=== PATIENT | female | born 1980 | race Caucasian/White ===

== ENCOUNTER 2021-11-13 18:52 | Inpatient (IN) | payer MEDICARE, MEDICAID ==
[2021-11-13] MEDS ORDERED: MAG HYDROX/AL HYDROX/SIMETH 30 ML CUP PO PRN (21:37)
[2021-11-13] MEDS ORDERED: ACETAMINOPHEN TAB 325 MG TAB PO PRN (21:37)
[2021-11-13] MEDS ORDERED: MAGNESIUM HYDROXIDE 2,400 MG/10 ML CUP PO PRN (21:37)
[2021-11-13] MEDS ORDERED: LORazepam 1 MG TAB PO PRN (21:37)
[2021-11-13] MEDS ORDERED: HALOPERIDOL LACTATE 5 MG/ML 1 ML VIAL IM PRN (21:37)
[2021-11-13] MEDS ORDERED: LORazepam 2 MG/ML INJ IM PRN (21:39)
[2021-11-13] MEDS ORDERED: haloperidoL 5 MG TAB PO PRN (21:40)
--- NOTE | 2021-11-13 23:23 | P.CONS ---
History of Present Illness - Reason for Consult Consult date: 11/13/21 - History of Present Illness The patient is a 40-year-old female who was transferred from [facility] for psychiatric evaluation. The patient was admitted to the mental health in which she was seen and evaluated with the mental health unit KEN Tom. 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 She reports having an apartment one-bedroom in which she states, although as per EPS evaluation and reports, the patient is currently homeless. She also reports spending large amount of time in the sun and being dry all over and developing small rashes as a result of her itching. She denied any additional physical complaints. Reports smoking 5 cigarettes a day but denies any drug or alcohol use. Denies recent chest discomfort, shortness of breath, fever, chills, cough, nausea, vomiting, abdominal pain, diarrhea. Review of systems: Pertinent positives and negatives as discussed in HPI, a complete review of systems was performed and all other systems are negative. Physical examination: General: non toxic, no distress, appears older than stated age, overweight Derm: Small excoriations without collection or drainage throughout, no unusual ecchymoses, warm, dry Head: atraumatic, normocephalic, symmetric Eyes: EOMI, no lid lag, anicteric sclera ENT: Nose and ears atraumatic, no thrush, no pharyngeal erythema Neck: trachea midline, supple Mouth: no lip lesion, mucus membranes moist Cardiovascular: S1S2 reg, no murmur, no edema Lungs: CTA bilateral, no rhonchi, no rales , no accessory muscle use Abdominal: soft, nontender to palpation, no guarding Ext: no gross muscle atrophy, no contractures, Neuro: No gross focal neuro deficits noted Psych: Alert, oriented, guarded affect Assessment/plan Small excoriations, suspected due to excessive itching -Obtain urine toxicology screen -Patient advised to use emollients and avoid excessive sun exposure Psychosis -As per psychiatry Thank you for allowing us to participate in the care of this patient. We will follow peripherally. Do not hesitate to contact us with questions. Someone can be reached from the [facility] hospitalist group at all hours of the day at [phone]. Past Medical History History of Any Multi-Drug Resistant Organisms: None Reported Smoking Status: Current every day smoker - Past Family History Mother Family Medical History: Cancer Medications and Allergies Home Medications Medication Instructions Recorded Confirmed Type No Known Home Medications 11/13/21 11/13/21 History Allergies Allergy/AdvReac Type Severity Reaction Status Date / Time No Known Allergies Allergy Verified 11/13/21 21:36 Physical Exam Vitals: Vital Signs Temp Pulse Resp BP 11/13/21 22:15 97.4 F L 73 16 116/66 Intake and Output 11/13/21 11/13/21 11/14/21 14:59 22:59 06:59 Other: Weight 76.41 kg
--- NOTE | 2021-11-14 09:25 | P.HP ---
Psychiatric H&P - . H&P Date: 11/14/21 History & Physical: Allergies Allergy/AdvReac Type Severity Reaction Status Date / Time No Known Allergies Allergy Verified 11/13/21 21:36 Vital Signs Temp 97.4 F L 11/13/21 22:15 Pulse 73 11/13/21 22:15 Resp 16 11/13/21 22:15 BP 116/66 11/13/21 22:15 Pulse Ox FiO2 Intake & Output 11/13/21 11/14/21 11/14/21 18:59 06:59 18:59 Weight 76.41 kg 11/14/21 09:16 This is a case of a 40-year-old single female was admitted to the hospital due to psychosis and agitation. 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 She says that she caught the [place] killer who was stalking her. 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 She says she has put all the mental health workers in prison because they keep doing this to her. She doesn't need any medications because [facility] told her to take medicines and then go home and not take medicines and don't go back to mental health anymore. However she would like me to give her some medicine so she can get the hell out of here. She says she did not like Abisharony but Dg was fine. Social history: The patient is wildly an accurate historian. However she says that she was adopted but she has no idea why. She was taken from her biological parents when she was 4 and adopted age 6 but her biological parents are fine. She was 1 of 9 children in the home she was adopted into. She has no idea whether her adoptive parents are alive or not but says that she has no animosity toward them she just doesn't know where they live with her phone number and has no car to go look for them. 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 She races at all her answers and has a chip on her shoulder. When asked her what was the same between Snakes She Said "What Are You Talking about" and Later, " What Are You Getting out?" She was able to spell world backwards she couldn't subtract 7 from 93 slowly and then she was able to subtract that by using her fingers nodding her head. General information showing a new one of the [facility] and the last 3 presidents. Short-term memory is poor she could not remember any of the 3 objects I gave her on immediate recall by got the distinct impression she was not trying. She was concrete on that proverb aggressive screen and outside offense saying, "it looks nice over there." She denies hallucinations but is clearly filled with delusions. She would get very defensive and angry and I felt like as walking on the shelves the entire. Plan: Start her on Seroquel and she is willing to take but this point she does not want to be here so I'll fill out a petition she is a danger to herself because she is delusional and defensive and irritable.
[2021-11-14] MEDS: NICOTINE 14MG/24HR PATCH TRANSDERM SCH (09:27)
[2021-11-14] MEDS ORDERED: QUEtiapine 200 MG TAB PO SCH (21:00)
[2021-11-15] MEDS: NICOTINE 14MG/24HR PATCH TRANSDERM SCH (08:59)
--- NOTE | 2021-11-15 10:58 | P.PN ---
Progress Note - Text Progress Note Date: 11/15/21 Interval History: Patient was seen resting in bed and was directable and agreeable to speak with grant writer in her room. Currently, the patient is not reporting any suicidal or homicidal ideation, intention, and/or plan. She is denying any overt auditory or visual hallucinations. However, the patient remains adamant that she owns the motel that she was trying to break into that led up to her hospitalization after she was detained by police. 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 She is not in agreement for psychiatric medica tions aside from seroquel. She states she will take the invega injectible if she has no invega oral medication. She was informed oral medication is to assess tolerance however she states it is "illegal to have me try both." Mental Status Exam: General Appearance: Patient appears to be stated age is alert, directable, and cooperative. Missing teeth. Wearing glasses. Very colorful clothing. Behavior: Patient is calmly seated without any agitated behavior. Speech: Patient's speech is fluent and nonpressured. Loud in volume. Mood/Affect: Mood is "Doing alright!" Affect is expansive. Suicidality/Homicidality: Patient denies having any suicidal or homicidal ideation intent or plan. Perceptions: Patient denies any visual hallucinations and denies any auditory hallucinations Though content/process: Delusional thought content is endorsed. Memory and concentration: AOX3, grossly intact for the purposes of this session Judgment and insight: Poor Vital Signs Temp 97.4 F L 11/13/21 22:15 Pulse 73 11/13/21 22:15 Resp 16 11/13/21 22:15 BP 116/66 11/13/21 22:15 Pulse Ox FiO2 Intake & Output 11/14/21 11/15/21 11/15/21 18:59 06:59 18:59 Weight 75.9 kg Assessment Schizophrenia vs Delusional Disorder Tobacco Use Disorder Plan: -Patient continues to meet criteria for inpatient psychiatric admission for symptom stabilization and safety. Patient has been petitioned and certified. -Medications: Increase Seroquel to 250 mg at bedtime for psychosis. -When necessary Ativan and Haldol for agitation/aggression. -NRT - nicotine patch -SW on board for discharge planning. Encouraged the patient to participate in milieu.
[2021-11-15] MEDS: QUEtiapine 200 MG TAB PO SCH (21:03)
[2021-11-15] MEDS: QUEtiapine 50 MG TAB PO SCH (21:03)
[2021-11-16] MEDS: NICOTINE 14MG/24HR PATCH TRANSDERM SCH (08:22)
--- NOTE | 2021-11-16 13:23 | P.PN ---
Progress Note - Text Progress Note Date: 11/16/21 Interval History: Patient was seen resting in bed and was directable and agreeable to speak with typewriter assembly and parts inspector in her room. The patient is currently denying any suicidal or homicidal ideation, intention, and/or plan. She is not reporting any auditory or visual hallucinations. She is denying any paranoia or other delusions. The patient has been adherent with her medication is not endorsing any significant side effects at this time. The patient denies being open with any outpatient psychiatric services despite her reporting that she has been on medications in the past. She states that she now has a place to stay and identifies the "[facility]" as her new home. She was informed she would not be discharged yet as she has been petitioned and certified. Mental Status Exam: General Appearance: Patient appears to be stated age is alert, directable, and cooperative. Missing teeth. Wearing glasses. Behavior: Patient is calmly seated without any agitated behavior. Poor eye contact today. Speech: Patient's speech is fluent and nonpressured. Loud in volume. Mood/Affect: Mood is "okay!" Affect is less expansive. Appears to be euthymic but intense. Suicidality/Homicidality: Patient denies having any suicidal or homicidal ideation intent or plan. Perceptions: Patient denies any visual hallucinations and denies any auditory hallucinations Though content/process: No overt delusional thought content is endorsed. Memory and concentration: AOX3, grossly intact for the purposes of this session Judgment and insight: Poor Vital Signs Temp 97.1 F L 11/16/21 07:09 Pulse 91 11/16/21 07:09 Resp 16 11/13/21 22:15 BP 106/63 11/16/21 07:09 Pulse Ox FiO2 Assessment Schizophrenia vs Delusional Disorder Tobacco Use Disorder Plan: -Patient continues to meet criteria for inpatient psychiatric admission for symptom stabilization and safety. Patient has been petitioned and certified. -Medications: Continue Seroquel 250 mg at bedtime for psychosis. -When necessary Ativan and Haldol for agitation/aggression. -NRT - nicotine patch -SW on board for discharge planning. Encouraged the patient to participate in milieu.
[2021-11-16] MEDS: QUEtiapine 50 MG TAB PO SCH (20:40)
[2021-11-16] MEDS: QUEtiapine 200 MG TAB PO SCH (20:41)
[2021-11-17] MEDS: NICOTINE 14MG/24HR PATCH TRANSDERM SCH (08:29)
--- NOTE | 2021-11-17 13:57 | P.PN ---
Progress Note - Text Progress Note Date: 11/17/21 Interval History: Patient was seen wandering the hallways and was directable and agreeable to speak with signwriter in the office. Currently, the patient is not reporting any suicidal or homicidal ideation, intention, and/or plan. She is not reporting any auditory or visual hallucinations. She denies any overt paranoia or other delusions. The patient has been adherent with her medications and is not endorsing any significant side effects. The patient has been petitioned and certified and we are awaiting [facility] to have an restaurant assistant manager over. She does not report any issues regarding her sleep or her appetite. Mental Status Exam: General Appearance: Patient appears to be stated age is alert, directable, and cooperative. Missing teeth. Wearing glasses. Behavior: Patient is calmly seated without any agitated behavior. Good eye contact today. Speech: Patient's speech is fluent and nonpressured. Loud in volume. Mood/Affect: Mood is "why am I still here?" Affect appears to be euthymic albeit a little expansive. Suicidality/Homicidality: Patient denies having any suicidal or homicidal ideation intent or plan. Perceptions: Patient denies any visual hallucinations and denies any auditory hallucinations Though content/process: No overt delusional thought content is endorsed. Memory and concentration: AOX3, grossly intact for the purposes of this session Judgment and insight: Poor Vital Signs Temp 97.1 F L 11/16/21 07:09 Pulse 91 11/16/21 07:09 Resp 16 11/13/21 22:15 BP 106/63 11/16/21 07:09 Pulse Ox FiO2 Assessment Schizophrenia vs Delusional Disorder Tobacco Use Disorder Plan: -Patient continues to meet criteria for inpatient psychiatric admission for symptom stabilization and safety. Patient has been petitioned and certified. Awaiting possible deferral. -Medications: Continue Seroquel 250 mg at bedtime for psychosis. -When necessary Ativan and Haldol for agitation/aggression. -NRT - nicotine patch -SW on board for discharge planning. Encouraged the patient to participate in milieu.
[2021-11-17] MEDS: QUEtiapine 200 MG TAB PO SCH (20:00)
[2021-11-17] MEDS: QUEtiapine 50 MG TAB PO SCH (20:00)
[2021-11-18 06:59] VITALS: BP 98/74; PULSE 107; RESP 18; TEMP 97.6
[2021-11-18] MEDS: NICOTINE 14MG/24HR PATCH TRANSDERM SCH (09:58)
--- NOTE | 2021-11-18 11:11 | P.DS ---
Providers Date of admission: 11/13/21 20:20 Expected date of discharge: 11/18/21 Attending physician: Robert Puckett MD Consults: 11/13/21 21:37 Consult Physician Routine Consulting Provider: Andrew Campos Consult Reason/Comments: medical management Do you want consulting provider notified?: Already Contacted Primary care physician: Stated None - Discharge Diagnosis(es) (1) Schizophrenia Current Visit: Yes Status: Acute Priority: High (2) Tobacco use disorder Current Visit: Yes Status: Chronic Priority: Medium Hospital Course: Admission HPI: Initial psychiatric evaluation was completed by Dr. Freeman on 11/14/2021 who wrote: "This is a case of a 40-year-old single female was admitted to the hospital due to psychosis and agitation. 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 She says that she caught the [place] killer who was stalking her. 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 She says she has put all the mental health workers in senior living because they keep doing this to her. She doesn't need any medications because [facility] told her to take medicines and then go home and not take medicines and don't go back to mental health anymore. However she would like me to give her some medicine so she can get the hell out of here. She says she did not like Abilify but Seroquel was fine." Hospital course: Upon admission to the unit patient was initially eating his overtly psychotic, paranoid, and delusional. Patient initially displayed very poor insight and irritable and elevated affect. She was subsequently certified. The patient was agreeable however to starting Seroquel. As the patient continues to take the Seroquel, she was also agreeable to its titration. As a hospitalization continued, the patient is but a significant improvement in regards to her target symptoms of psychosis. She became much more calm and cooperative for this psychiatric interview although remain primarily isolative to herself in her room. She did however become less forthcoming with any psychotic symptoms and was less concerned about solving murder mysteries and breaking into a motel. As per discussion with staff, we received collateral information that the patient's delusional beliefs about the motel in [place] have been chronic in nature. The patient deferred mental health court on 11/17/2021. On the day of discharge , the patient is not reporting any suicidal or homicidal ideation, intention, and/or plan. She reports his desire to live for herself. She denies any auditory or visual hallucinations. She is not fourth coming with any overt delusional thoughts. She denies any paranoia or other delusions see this provider today. She has been adherent with her medication is not reporting any significant side effects. The patient was reminded that she did defer mental health court and that she is required to take her medication follow-up with her outpatient appointments for mental health. The patient expresses understanding. The patient was also counseled at length on importance of abstaining from psychoactive substances such as alcohol, marijuana, and even tobacco. Prior to discharge, a meeting will be arranged by nursing home social worker with her behavioral team in [facility] to answer questions and ensure safety. Mental status exam: General Appearance: Patient appears to be stated age is alert, pleasant, and cooperative. Patient is in no acute distress and has fair hygiene and grooming Behavior: Patient is calmly seated without any agitated behavior. Speech: Patient's speech is fluent and nonpressured. Mood/Affect: Patient reports their mood is "been okay", affect is congruent and euthymic. Suicidality/Homicidality: Patient denies any suicidal or homicidal ideation, intention, and/or plan. Perceptions: Patient denies any auditory or visual hallucinations. Though content/process: There is no evidence of any delusional thought content and thought process is linear and goal-directed. The patient is future and goal oriented. Memory and concentration: AOX3, grossly intact for the purposes of this session. Can spell "WORLD" backwards correctly. Judgment and insight: Improved with guarded prognosis Impression: Schizophrenia Tobacco use disorder Plan: -Continue with discharge today as patient has improved and stabilized psychiatrically and is not currently an imminent threat to herself and/or others. She will remain at chronically elevated risk due to the chronicity and severity of her mental illness. -Continue medications: Seroquel 250 mg by mouth at bedtime for mood stabilization/psychosis Habitrol patches for nicotine cessation -Patient was counseled on the need for medication compliance and appropriate follow-up at mental health and also primary care for medical issues. Patient verbalized understanding and agreed. -Social work to arrange for and conduct family meeting to ensure safety upon discharge and answer any questions/concerns. Social work also to arrange for patients follow up appointments with [facility] for psychiatric care along with follow up with primary care provider. -Patient counseled on abstaining from recreational drugs and marijuana and alcohol. Was informed/educated on the adverse effects on their physical and mental health. Patient verbally agreed and understood. -Patient was instructed to return to the hospital or seek immediate medical care if their psychiatric or medical symptoms do worsen or reoccur. -Psychoeducation and supportive therapy provided to patient. Risks and benefits of pharmacological treatment versus the risks and benefits of nontreatment weight and discussed. Informed consent discussion held. Common side effects of psychotropics discussed such as, but not limited to headache, GI disturbance, sexual dysfunction, movement disorders, sedation, and orthostatic hypotension. Life threatening and blackbox warnings of prescribed medications also discussed. Potential risks of operating a vehicle or heavy machinery discussed with patient at length. Advised on importance of compliance and a reliable and responsible manner. Patient advised to review FDA consumer labeling of all medications prior to taking. Patient verbalized understanding of potential risks, and agrees with current treatment plan. Patient advised to medically contact physician/emergency personnel if any acute changes in condition occur. Vital Signs Temp 97.6 F 11/18/21 06:58 Pulse 107 H 11/18/21 06:58 Resp 18 11/18/21 06:58 BP 98/74 11/18/21 06:58 Pulse Ox 98 11/18/21 06:58 FiO2 Allergies Allergy/AdvReac Type Severity Reaction Status Date / Time No Known Allergies Allergy Verified 11/13/21 21:36 Patient Condition at Discharge: Stable Plan - Discharge Summary New Discharge Prescriptions: New Nicotine 14Mg/24Hr Patch [Habitrol] 1 patch TRANSDERM DAILY 30 Days patch QUEtiapine [SEROquel] 50 mg PO HS 30 Days tab QUEtiapine [SEROquel] 200 mg PO HS 30 Days tab Discharge Medication List Nicotine 14Mg/24Hr Patch [Habitrol] 1 patch TRANSDERM DAILY 30 Days patch 11/18/21 [Rx] QUEtiapine [SEROquel] 50 mg PO HS 30 Days tab 11/18/21 [Rx] QUEtiapine [SEROquel] 200 mg PO HS 30 Days tab 11/18/21 [Rx] Follow up Appointment(s)/Referral(s): [facility], [facility] [Other] - 1 Week Activity/Diet/Wound Care/Special Instructions: Avoid the use of street drugs and alcohol. Take all prescriptions as prescribed. When you are in need of refills on your medications, please contact your medical provider and/or outpatient psychiatrist to have this done. Please go to scheduled outpatient appointment for aftercare treatment. If symptoms return or become worse, call the crisis line at and/or go to the nearest emergency room for evaluation. Discharge Disposition: HOME SELF-CARE
== END 2021-11-18 13:55 | disposition home or self-care (01) | DRG 880 ==
LOC: 3MHU 20:20
PROVIDERS: ADMIT Psychiatry & Neurology Psychiatry; ATTEND Psychiatry & Neurology Psychiatry
DX: F99 Mental disorder, not otherwise specified (principal); F20.9 Schizophrenia, unspecified; F17.210 Nicotine dependence, cigarettes, uncomplicated; Z59.00 Homelessness unspecified; Z79.899 Other long term (current) drug therapy; R45.1 Restlessness and agitation; F42.4 Excoriation (skin-picking) disorder; Z28.310 Unvaccinated for COVID-19; Z71.6 Tobacco abuse counseling; Z71.89 Other specified counseling

== ENCOUNTER 2022-02-18 05:57 | Inpatient (IN) | payer MEDICARE, MEDICAID ==
[2022-02-18] MEDS ORDERED: HALOPERIDOL LACTATE 5 MG/ML 1 ML VIAL IM PRN (06:21)
[2022-02-18] MEDS ORDERED: ACETAMINOPHEN TAB 325 MG TAB PO PRN (06:21)
[2022-02-18] MEDS ORDERED: LORazepam 1 MG TAB PO PRN (06:21)
[2022-02-18] MEDS ORDERED: MAG HYDROX/AL HYDROX/SIMETH 30 ML CUP PO PRN (06:21)
[2022-02-18] MEDS ORDERED: MAGNESIUM HYDROXIDE 2,400 MG/10 ML CUP PO PRN (06:21)
[2022-02-18] MEDS ORDERED: LORazepam 1 MG/0.5 ML VIAL IM PRN (06:24)
[2022-02-18] MEDS ORDERED: haloperidoL 5 MG TAB PO PRN (06:25)
--- NOTE | 2022-02-18 13:21 | P.PN ---
Progress Note - Text Progress Note Date: 02/18/22 Went to see patient for the consultation and she refused evaluation, she wants to see the psychiatrist.
[2022-02-18] MEDS: NICOTINE 14MG/24HR PATCH TRANSDERM SCH (14:21)
[2022-02-19] MEDS: NICOTINE 14MG/24HR PATCH TRANSDERM SCH (10:13)
--- NOTE | 2022-02-19 13:45 | P.HP ---
Psychiatric H&P - . H&P Date: 02/19/22 History & Physical: IDENTIFYING DATA: Patient is a 41 year old single female with history of schizophrenia who was admitted to the hospital due to psychosis and erratic behaviors. 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 She is claiming she owns the [employer] and was trying to evict people out of there. Patient is delusional and showing erratic behavior. Patient denies having a mental health history. Police state that she was trying to evict people from the [employer]." Clinical Certificate: "Schizophrenia with acute psychosis. Patient with grandiose delusions." Per [facility], pt is not taking any meds, denies suicidal and homicidal thoughts, states she works for the [employer], is a poor historian, not able to appropriately answer questions and treated for scabies while in [facility] ED." She was given Haldol 5 mg IM x 1 and Ativan 2 mg IM x 1 for agitation prior to transfer to the unit. Per nursing notes, since arrival to the unit, patient has been mostly uncooperative with treatment, has been hostile towards nursing staff, called the nurse a "dumbass" numerous times. She is disheveled, easily frustrated, has not attended most groups. She was recently hospitalized on our mental health unit from 11/13/21 to 11/18/21 on involuntary basis for psychosis and agitation, and was discharged on Seroquel 250 mg QHS for mood stabilization/psychosis. Patient deferred mental health court on 11/17/2021. On my assessment today, patient was found isolating to her room looking out the window with the lights off. She is hostile and uncooperative on assessment. She begins to ramble delusional thought content laced with profanity and terminates assessment after 1-2 minutes. She is claims she was told by a numerical control tool programmer that she owns the motel. 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 She claims she does not have a mental illness and does not need psychotropic medications. She tells this writer technical publications to get out of her room and she will wait to see the student activities director. She calls this writer technical publications a "betsy navarro" multiple times. Assessment was terminated to avoid further escalating patient and to maintain safety. Most of history below taken from past records. She has a history of marijuana and tobacco use. PAST PSYCHIATRIC HISTORY: Previous diagnosis: Schizophrenia Prior psychiatric medications: Dg Noland Previous psychiatric hospitalizations: 7 hospitalizations, last one 11/2021 at [facility] Psychiatric outpatient follow-up: not known at this time due to lack of cooperation History of suicide attempts: not known at this time due to lack of cooperation PMH: Smoker Other medical history not known at this time due to lack of cooperation ALLERGIES: as per EMR CHEMICAL DEPENDENCY HISTORY: as per HPI FAMILY PSYCHIATRIC/SUBSTANCE USE HISTORY: not known at this time due to lack of cooperation SOCIAL HISTORY: Per chart, she previously reported having been adopted. She completed high school She is on social security MENTAL STATUS EXAM: General Appearance: Patient appears to be stated age, disheveled, dressed in sweats Behavior: Patient is standing looking out the window, then sits on her bed and begins to yell profanity at this writer technical publications Speech: Patient's speech is loud, rapid but not pressured. Mood/Affect: Mood is irritable, affect is congruent and constricted. Suicidality/Homicidality: Not able to fully assess at this time due to lack of cooperation Perceptions: Concern for attending to internal stimuli. 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 Not able to fully assess at this time due to lack of cooperation Judgment and insight: Very poor STRENGTHS/WEAKNESSES: Strength is that patient is resilient. Weakness is that patient has poor judgment and is impulsive. INTELLECT: Estimated as average IMPRESSIONS: Schizophrenia Tobacco use disorder Noncompliance with treatment PLAN: -Patient is admitted under involuntary status to MHU for stabilization of psychiatric symptoms and safety. Patient has not signed adult voluntary form or medication consent. A second certification was completed and along with petition will be filed for court. -Medications: Will start patient on Invega 3 mg QHS for psychosis/mood stabilization which she will likely refuse, and she will require a court order for medication compliance. Admission labs have been ordered but not yet completed due to lack of cooperation. -Ativan and Haldol PRN for agitation/aggression. -Patient was not cooperative with discussion regarding medications and side effects. -Internal Medicine consult to perform medical evaluation and physical. -NRT - nicotine patch -SW on board for discharge planning. Encourage patient to participate in groups to work on coping skills. Will await court date. Allergies Allergy/AdvReac Type Severity Reaction Status Date / Time No Known Allergies Allergy Verified 02/18/22 06:33 Vital Signs Temp 98.5 F 02/18/22 12:41 Pulse 104 H 02/18/22 12:41 Resp 20 02/18/22 12:41 BP 125/76 02/18/22 12:41 Pulse Ox FiO2 02/19/22 12:50 02/19/22 13:30
[2022-02-19] MEDS: PALIPERIDONE 3 MG TAB.ER.24 PO SCH (21:19)
--- NOTE | 2022-02-20 00:20 | P.PN ---
Progress Note - Text Progress Note Date: 02/19/22 Attempted to see the patient at 1999 on 02/19 in the mental health unit. Informed by the mental health unit RN that the patient wasn't appropriate for evaluation.
[2022-02-20] MEDS: NICOTINE 14MG/24HR PATCH TRANSDERM SCH (11:05)
[2022-02-20] MEDS: PALIPERIDONE 3 MG TAB.ER.24 PO SCH (20:09)
--- NOTE | 2022-02-20 23:18 | P.PN ---
Progress Note - Text Progress Note Date: 02/20/22 Interval history: Patient was seen eating her snack and was dismissive, not cooperative with assessment. She was observed attending to internal stimuli, appeared to be talking to herself. She has been withdrawn, isolating to her room except for meals. She has not been attending groups and has been noncompliant with meds and labs. She remains disheveled, irritable, with poor insight and poor judgment. Mental status exam: General Appearance: Patient appears to be older than stated age, disheveled. Behavior: Withdrawn, isolates to room except for meals, ignores attempts to engage in assessment, talks to self. Speech: Patient's speech is fluent and nonpressured. Mood/Affect: Mood is irritable, affect is congruent and constricted. Suicidality/Homicidality: Not able to fully assess due to lack of cooperation. Perceptions: Appears to be attending to internal stimuli Though content/process: Delusional thought content, linear Memory and concentration: AOX2; Not able to fully assess due to lack of cooperation. Judgment and insight: very poor Assessment/Plan: Continue with current diagnosis. Patient continues to meet criteria for inpatient psychiatric admission for symptom stabilization and safety. Patient will be maintained on current psychotropic medication regimen. Monitor for medication compliance and for any psychotropic medication side effects. Will continue to monitor ongoing response to treatment. Encouraged participation in milieu.
[2022-02-21] MEDS: NICOTINE 14MG/24HR PATCH TRANSDERM SCH (09:14)
[2022-02-21] MEDS ORDERED: LORazepam 1 MG/0.5 ML VIAL IM PRN (11:28)
--- NOTE | 2022-02-21 11:32 | P.PN ---
Progress Note - Text Progress Note Date: 02/21/22 Interval History: Patient was seen today laying in her bed and was agreeable to speak to check writer salesperson. Patient appeared to be disheveled in appearance, loud and impulsive. She was difficult to redirect during conversation. Patient was illogical, loose in associations and also delusional. 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 She believes that she does not have a psychiatric condition and does not need medications. She was rambling and difficult to comprehend at times and had disorganized speech and thoughts and was at times grandiose about having millions of dollars and also owning a hotel. At this time patient denies any suicidal or homical ideations, intent or plan. Patient denies any auditory, visual hallucinations and denies any paranoia or delusions. Patient denies any side effects from the medications and has been compliant with meds. Mental Status Exam: General Appearance: Patient appears to be stated age, disheveled, dressed in sweats. poor hygeine and grooming. Behavior: Patient is laying in bed, impulsive and yelling, difficult to redirect. Speech: Patient's speech is loud, rapid but not pressured. Mood/Affect: Mood is irritable, affect is congruent and labile Suicidality/Homicidality: Denies Perceptions: Responding to internal stimuli. Denying any auditory or visual hallucinations. Thought process/content: Rambles, argumentative, illogical. Loose associations. 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 Not able to fully assess at this time due to lack of cooperation Judgment and insight: Very poor IMPRESSIONS: Schizoaffective disorder, Bipolar type Nicotine dependence Noncompliance with treatment Plan: -Patient continues to meet criteria for inpatient psychiatric admission for symptom stabilization and safety. Patient has not signed adult voluntary form and medication consent and was placed in patient's chart. -Medications: increase Invega 3 mg bid for psychosis/mood stabilization -When necessary Ativan and Haldol for agitation/aggression. -NRT - nicotine patch -SW on board for discharge planning. Encouraged the patient to participate in milieu. Currently awaiting deferral with family law attorney and court date.
[2022-02-21] MEDS: PALIPERIDONE 3 MG TAB.ER.24 PO SCH (19:49)
[2022-02-22] MEDS: PALIPERIDONE 3 MG TAB.ER.24 PO SCH ×2 (09:39→20:55)
[2022-02-22] MEDS: NICOTINE 14MG/24HR PATCH TRANSDERM SCH (09:39)
--- NOTE | 2022-02-22 11:54 | P.PN ---
Progress Note - Text Progress Note Date: 02/22/22 Interval History: Patient was seen today laying in her bed and was agreeable to speak to feature writer. Patient continues to appear to have poor hygiene and grooming and a disheveled appearance. She continues to be loud and demanding and also fairly irritable with feature writer. She states that she does not need medications and claims that she got the "court papers" stating that she has a court hearing date scheduled for . She states that "I want to see what the modeling director says about this". She continues to speak about "a big law suit" involving the hospital and also continues to be grandiose delusional and states that she owns a big hotel. she believes that she does not have a psychiatric condition and does not need medications. She was rambling and difficult to comprehend at times. At this time patient denies any suicidal or homical ideations, intent or plan. Patient denies any auditory, visual hallucinations. Patient is not taking her medications at this time. Mental Status Exam: General Appearance: Patient appears to be stated age, disheveled, dressed in sweats. poor hygeine and grooming. Behavior: Patient is laying in bed, impulsive and yelling, difficult to redirect. Speech: Patient's speech is loud, rapid but not pressured. Mood/Affect: Mood is irritable, affect is congruent and labile Suicidality/Homicidality: Denies Perceptions: Responding to internal stimuli. Denying any auditory or visual hallucinations. Thought process/content: Rambles, argumentative, illogical. Loose associations. 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 Memory and concentration: Alert, oriented to person, place. Not able to fully assess at this time due to lack of cooperation Judgment and insight: Very poor IMPRESSIONS: Schizoaffective disorder, Bipolar type Nicotine dependence Noncompliance with treatment Plan: -Patient continues to meet criteria for inpatient psychiatric admission for symptom stabilization and safety. Patient has not signed adult voluntary form and medication consent and was placed in patient's chart. -Medications: Invega 3 mg bid for psychosis/mood stabilization. She is not taking medications -When necessary Ativan and Haldol for agitation/aggression. -NRT - nicotine patch -SW on board for discharge planning. Encouraged the patient to participate in milieu. Currently awaiting deferral and court date set for 02/24.
[2022-02-23] MEDS: PALIPERIDONE 3 MG TAB.ER.24 PO SCH ×2 (10:12→20:35)
[2022-02-23] MEDS: NICOTINE 14MG/24HR PATCH TRANSDERM SCH (10:12)
--- NOTE | 2022-02-23 10:39 | P.PN ---
Progress Note - Text Progress Note Date: 02/23/22 Interval History: Patient was seen today laying in her bed and was agreeable to speak to music writer briefly. Patient appeared to be concrete and have poverty of content initially. She continues to be impulsive and yelling during conversation at times. She states that "I can't wait to talk to the straightedge man about this" then referred to the straightedge man by name and states that she will talk to him tomorrow. She continues to be grandiose and delusional. Continues to be impulsive and irritable/agitated during conversation. Patient states that she did not sleep well last night has a fair appetite. she believes that she does not have a psychiatric condition and does not need medications. She was rambling and difficult to comprehend at times. At this time patient denies any suicidal or homical ideations, intent or plan. Patient denies any auditory, visual hallucinations. Patient is not taking her medications at this time. Mental Status Exam: General Appearance: Patient appears to be stated age, disheveled, dressed in sweats. poor hygeine and grooming. Behavior: Patient is laying in bed, impulsive and yelling, difficult to redirect. Speech: Patient's speech is loud, rapid but not pressured. Mood/Affect: Mood is "okay", affect is incongruent and labile Suicidality/Homicidality: Denies Perceptions: Responding to internal stimuli. Denying any auditory or visual hallucinations. Thought process/content: Rambles, argumentative, illogical. Loose associations. 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 Memory and concentration: Alert, oriented to person, place. Not able to fully assess at this time due to lack of cooperation Judgment and insight: Very poor and impulsive IMPRESSIONS: Schizoaffective disorder, Bipolar type Nicotine dependence Noncompliance with treatment Plan: -Patient continues to meet criteria for inpatient psychiatric admission for symptom stabilization and safety. Patient has not signed adult voluntary form and medication consent and was placed in patient's chart. -Medications: Invega 3 mg bid for psychosis/mood stabilization. She is not taking medications -When necessary Ativan and Haldol for agitation/aggression. -NRT - nicotine patch -SW on board for discharge planning. Encouraged the patient to participate in milieu. Currently awaiting deferral and court date set for 02/24.
--- NOTE | 2022-02-24 00:43 | P.PN ---
Progress Note - Text Progress Note Date: 02/23/22 Attempted to see the patient in the mental health unit on 02/23 at 2300. The patient refused to be seen or be evaluated.
[2022-02-24] MEDS: PALIPERIDONE 3 MG TAB.ER.24 PO SCH ×2 (09:45→19:45)
--- NOTE | 2022-02-24 11:22 | P.PN ---
Progress Note - Text Progress Note Date: 02/24/22 Interval History: Patient was seen today in her room and was agreeable to speak to filing writer briefly. Patient appeared to be more impulsive and irritable today. She was yelling at filing writer today cursing at her document review attorney that she had to meet with yesterday. She states that "I didn't even want to talk to her". She states that she is looking forward to speaking with the carbon brusher assembler about her treatment and states that "he is going to let me go". She continues to have very poor insight, poor frustration tolerance. She is impulsive and irritable today and also argumentative. She continues to be refusing medications. Claims that she slept fairly last night and is eating well. she believes that she does not have a psychiatric condition and does not need medications. She was rambling and difficult to comprehend at times. At this time patient denies any suicidal or homical ideations, intent or plan. Patient denies any auditory, visual hallucinations. Patient is not taking her medications at this time. Mental Status Exam: General Appearance: Patient appears to be stated age, disheveled, dressed in sweats. poor hygeine and grooming. Behavior: Patient is laying in bed, impulsive and yelling, difficult to redirect. Speech: Patient's speech is loud, rapid but not pressured. Mood/Affect: Mood is "ok", affect is incongruent and labile Suicidality/Homicidality: Denies Perceptions: Responding to internal stimuli. Denying any auditory or visual hallucinations. Thought process/content: Rambles, argumentative, illogical. Loose associations. 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 Memory and concentration: Alert, oriented to person, place. Not able to fully assess at this time due to lack of cooperation Judgment and insight: Very poor and impulsive IMPRESSIONS: Schizoaffective disorder, Bipolar type Nicotine dependence Noncompliance with treatment Plan: -Patient continues to meet criteria for inpatient psychiatric admission for symptom stabilization and safety. Patient has not signed adult voluntary form and medication consent and was placed in patient's chart. -Medications: Invega 3 mg bid for psychosis/mood stabilization. She is not taking medications -When necessary Ativan and Haldol for agitation/aggression. -NRT - nicotine patch -SW on board for discharge planning. Encouraged the patient to participate in milieu. Currently awaiting deferral and court date set for 02/24.
[2022-02-24] MEDS: NICOTINE 14MG/24HR PATCH TRANSDERM SCH (12:08)
[2022-02-24] MEDS ORDERED: flUPHENAZine 2.5 MG/ML (MDV) 10 ML VIAL IM PRN (16:25)
[2022-02-25] MEDS: PALIPERIDONE 3 MG TAB.ER.24 PO SCH ×2 (09:31→20:12)
[2022-02-25] MEDS: NICOTINE 14MG/24HR PATCH TRANSDERM SCH (09:31)
--- NOTE | 2022-02-25 12:01 | P.PN ---
Progress Note - Text Progress Note Date: 02/25/22 Interval History: Patient was seen wandering down the hallways and appeared to be yelling and so mewhat agitated. Interlocking And Signal Mechanic approached patient speaks today for an interview and patient turned to promotion writer briefly and stated "go fuck yourself I dont want to talk to you" and continued walking down the hallway. Mental Status Exam: General Appearance: Patient appears to be stated age, disheveled, dressed in sweats. poor hygeine and grooming. Behavior: Patient is impulsive and yelling, difficult to redirect. Speech: Patient's speech is loud, rapid but not pressured. Mood/Affect: Unable to assess Suicidality/Homicidality: Unable to assess Perceptions: Unable to assess Thought process/content: Rambles, argumentative, hostile. Memory and concentration: Unable to assess Judgment and insight: Very poor and impulsive IMPRESSIONS: Schizoaffective disorder, Bipolar type Nicotine dependence Noncompliance with treatment Plan: -Patient continues to meet criteria for inpatient psychiatric admission for symptom stabilization and safety. Patient has not signed adult voluntary form and medication consent and was placed in patient's chart. -Medications: Invega 3 mg bid for psychosis/mood stabilization, if patient refuses then give prolixin IM as per court order. added depakote 500 mg qhs for aggression/mood stabilization. -When necessary Ativan and Haldol for agitation/aggression. -NRT - nicotine patch -SW on board for discharge planning. Encouraged the patient to participate in milieu. court ordered on 02/24.
[2022-02-25] MEDS: DIVALPROEX ER 500 MG TAB.ER.24H PO SCH (20:12)
[2022-02-26] MEDS: NICOTINE 14MG/24HR PATCH TRANSDERM SCH (09:17)
[2022-02-26] MEDS: PALIPERIDONE 3 MG TAB.ER.24 PO SCH ×2 (09:21→20:52)
[2022-02-26] MEDS: DIVALPROEX ER 500 MG TAB.ER.24H PO SCH (20:52)
--- NOTE | 2022-02-26 22:50 | P.PN ---
Progress Note - Text Progress Note Date: 02/26/22 Interval history: Patient was seen eating her snack and appeared superficially cooperative and guarded on assessment. At this time, patient denies any suicidal or homicidal ideation, intent or plan. Denies any auditory or visual hallucinations, however she does appear to be attending to internal stimuli. Patient denies any side effects from the medications and has been compliant with meds. She has not attended groups, tends to keep to herself and isolate to her room except for meals. She continues to appear suspicious, paranoid, appears to be talking to herself under her breath. Mental status exam: General Appearance: Patient appears to be older than stated age, is edentulous, dressed in casual attire, suboptimal hygiene. Behavior: No agitated behavior. Superficially cooperative, guarded, poor historian. Speech: Patient's speech is minimal and non-pressured. Mood/Affect: Mood is "fine", affect is blunted and constricted. Suicidality/Homicidality: Patient denies having any suicidal or homicidal ideation intent or plan. Perceptions: Patient denies any auditory or visual hallucinations, however she appears to be attending to internal stimuli. Though content/process: There is evidence of delusional thought content. Thought process is concrete. Memory and concentration: Unable to fully assess due to limited cooperation. Judgment and insight: Chronically poor Assessment/Plan: Continue with current diagnosis. Patient continues to meet criteria for inpatient psychiatric admission for symptom stabilization and safety. Increase Invega to 6 mg BID for psychosis and mood. Monitor for medication compliance and for any psychotropic medication side ef fects. Will continue to monitor ongoing response to treatment. Encouraged participation in milieu.
[2022-02-27] MEDS: PALIPERIDONE 3 MG TAB.ER.24 PO SCH ×2 (09:38→20:52)
[2022-02-27] MEDS: NICOTINE 14MG/24HR PATCH TRANSDERM SCH (09:39)
[2022-02-27 10:09] VITALS: RESP 18; TEMP 97.8
--- NOTE | 2022-02-27 19:42 | P.PN ---
Progress Note - Text Progress Note Date: 02/27/22 Interval history: Patient was seen in the hallway today and she appears more engaged, more cooperative with assessment today since her Invega was increased to 6 mg BID starting this morning. Her mood is happier today, and she reports good mood, sleep and appetite. She does not appear to be attending to internal stimuli on my assessment. At this time, patient denies any suicidal or homicidal ideation, intent or plan; and denies any auditory or visual hallucinations. Patient denies any side effects from the medications and has been compliant with meds. She attended one our of 4 groups today which is an improvement for her. Her thoughts are still concrete but more spontaneous today. Mental status exam: General Appearance: Patient appears to be older than stated age, is edentulous, dressed in casual attire, improving hygiene. Behavior: No agitated behavior. More engaged in assessment today. Speech: Patient's speech is spontaneous and non-pressured. Mood/Affect: Mood is good, improving, affect is blunted and constricted. Suicidality/Homicidality: Patient denies having any suicidal or homicidal ideation intent or plan. Perceptions: Patient denies any auditory or visual hallucinations, however she appears to be attending to internal stimuli. Though content/process: There is evidence of delusional thoughts. Thought process is concrete. Memory and concentration: Alert and oriented to person, place and situation. Judgment and insight: Chronically poor Assessment/Plan: Continue with current diagnosis. Patient continues to meet criteria for inpatient psychiatric admission for symptom stabilization and safety. Invega increased to 6 mg BID for psychosis and mood starting this morning. Monitor for medication compliance and for any psychotropic medication side effects. Will continue to monitor ongoing response to treatment. Encouraged participa tion in milieu.
[2022-02-27] MEDS: DIVALPROEX ER 500 MG TAB.ER.24H PO SCH (20:51)
[2022-02-28] MEDS: NICOTINE 14MG/24HR PATCH TRANSDERM SCH (11:06)
[2022-02-28] MEDS: PALIPERIDONE 3 MG TAB.ER.24 PO SCH ×2 (11:06→20:04)
--- NOTE | 2022-02-28 16:29 | P.PN ---
Progress Note - Text Progress Note Date: 02/28/22 Interval History: Patient was seen wandering down the hallways and was agreeable to speak to nithya ovalle in her room today. She appears to have improvement in her impulse control and also her anxiety and agitation. Patient claims that she is taking her medications and knows that she is on a court order. 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 She claims that her mood is "fine" and was fairly concrete during the interview. She appears to be less restless and agitated. She is denying any suicidal or homicidal ideations intent or plan. Denying any auditory or visual hallucinations at this time. Patient is taking her medications denying any side effects. Mental Status Exam: General Appearance: Patient appears to be stated age, disheveled, dressed in sweats. Improving hygeine and grooming. Behavior: Patient is less impulsive, more directable. Speech: Patient's speech is more clear today, loud at times. Mood/Affect: Claims her mood is "okay" and affect is incongruent. Suicidality/Homicidality: Denies Perceptions: Denies Thought process/content: Rambles, argumentative less, continues to be delusional. Loose associations. Memory and concentration: Alert and oriented 3, improving concentration. Judgment and insight: Very poor, improving mildly IMPRESSIONS: Schizoaffective disorder, Bipolar type Nicotine dependence Noncompliance with treatment Plan: -Patient continues to meet criteria for inpatient psychiatric admission for symptom stabilization and safety. Patient has not signed adult voluntary form and medication consent and was placed in patient's chart. -Medications: continue with Invega 6 mg bid for psychosis/mood stabilization, if patient refuses then give prolixin IM as per court order. increase depakote 1000 mg qhs for aggression/mood stabilization. -When necessary Ativan and Haldol for agitation/aggression. -NRT - nicotine patch -SW on board for discharge planning. Encouraged the patient to participate in milieu. court ordered on 02/24. likely discharge in 2-3 days once patient is transitioned onto HOLLOWAY.
[2022-02-28] MEDS: DIVALPROEX ER 500 MG TAB.ER.24H PO SCH (20:04)
[2022-03-01] MEDS: PALIPERIDONE 3 MG TAB.ER.24 PO SCH ×2 (09:25→21:14)
[2022-03-01] MEDS: NICOTINE 14MG/24HR PATCH TRANSDERM SCH (09:26)
[2022-03-01] MEDS ORDERED: PALIPERIDONE IM 234 MG/1.5 ML SYG IM STA (10:11)
--- NOTE | 2022-03-01 10:15 | P.PN ---
Progress Note - Text Progress Note Date: 03/01/22 Interval History: Patient was seen lying in her bed today and appeared to be somewhat tired. She states that she is taking her medications. She was fairly concrete with va underwriter and continues to be somewhat argumentative/hostile. Continues to be loud at times with her voice and states that "I didn't even want to talk to you". States that she slept fairly last night. She continues to state that she wants to stay at the "[facility]". She appears to have mild improvement in her impulse control and also her anxiety and agitation. She claims that her mood is "fine" and was fairly concrete during the interview. She is denying any suicidal or homicidal ideations intent or plan. Denying any auditory or visual hallucinations at this time. Patient is taking her medications Mental Status Exam: General Appearance: Patient appears to be stated age, disheveled, dressed in sweats. Improving hygeine and grooming. Behavior: Patient is less impulsive, more directable. Speech: Patient's speech is more clear today, loud at times, proving mildly Mood/Affect: Claims her mood is "fine" and affect is incongruent. Suicidality/Homicidality: Denies Perceptions: Denies Thought process/content: Rambles, argumentative less, continues to be delusional, less preoccupied with it. Loose associations. Memory and concentration: Alert and oriented 3, improving concentration. Judgment and insight: chronically limited, improving mildly IMPRESSIONS: Schizoaffective disorder, Bipolar type Nicotine dependence intellectual disability Noncompliance with treatment Plan: -Patient continues to meet criteria for inpatient psychiatric admission for symptom stabilization and safety. Patient has not signed adult voluntary form and medication consent and was placed in patient's chart. -Medications: continue with Invega 6 mg bid for psychosis/mood stabilization, if patient refuses then give prolixin IM as per court order. will give Invega Sustenna 234 mg IM today to ensure compliance. depakote 1000 mg qhs for aggression/mood stabilization. -When necessary Ativan and Haldol for agitation/aggression. -NRT - nicotine patch -SW on board for discharge planning. Encouraged the patient to participate in milieu. court ordered on 02/24. likely discharge in 2-3 days once patient is transitioned onto HOLLOWAY and given second dose.
[2022-03-01] MEDS: DIVALPROEX ER 500 MG TAB.ER.24H PO SCH (21:14)
[2022-03-02] MEDS: NICOTINE 14MG/24HR PATCH TRANSDERM SCH (09:10)
[2022-03-02] MEDS: PALIPERIDONE 3 MG TAB.ER.24 PO SCH ×2 (09:10→20:29)
--- NOTE | 2022-03-02 10:12 | P.PN ---
Progress Note - Text Progress Note Date: 03/02/22 Interval History: Patient was seen lying in her bed today and appeared to be somewhat tired. She woke up when copy writer came to talk to her in the room. Patient continues to be loud, aggressive and hostile towards copy writer. She sworeat copy writer several times calling him a "jackass" and also "dumb ass". She continues to appear to be easily agitated and aggressive and also demonstrating low frustration tolerance. She refused her medications yesterday and received Prolixin IM as per the court order. Patient was given Invega Sustenna 234 mg IM on 03/01. States that she slept fairly last night. She continues to state that she wants to stay at the "[facility]". She claims that her mood is "fine" and was fairly concrete during the interview. She is denying any suicidal or homicidal ideations intent or plan. Denying any auditory or visual hallucinations at this time. Patient is taking her medications. she demanded that copy writer leave the room. Mental Status Exam: General Appearance: Patient appears to be stated age, disheveled, dressed in sweats. Improving hygeine and grooming. Behavior: Patient is impulsive, agitated/aggressive. hostile. Speech: Patient's speech is more clear today, loud at times, demanding. Mood/Affect: Claims her mood is "fine" and affect is incongruent. Suicidality/Homicidality: Denies Perceptions: Denies Thought process/content: Rambles, argumentative, continues to be delusional, less preoccupied with it. Loose associations. demanding and aggressive. Memory and concentration: Alert and oriented 3, improving concentration. Judgment and insight: chronically limited IMPRESSIONS: Schizoaffective disorder, Bipolar type Nicotine dependence intellectual disability Noncompliance with treatment Plan: -Patient continues to meet criteria for inpatient psychiatric admission for symptom stabilization and safety. Patient has not signed adult voluntary form and medication consent and was placed in patient's chart. -Medications: continue with Invega 6 mg bid for psychosis/mood stabilization, if patient refuses then give prolixin IM as per court order. given Invega Sustenna 234 mg IM on 03/01 to ensure compliance. increase depakote 1000 mg qhs + 500 mg daily for aggression/mood stabilization, patient cannot refuse this medication. -When necessary Ativan and Haldol for agitation/aggression. -NRT - nicotine patch -SW on board for discharge planning. Encouraged the patient to participate in milieu. court ordered on 02/24. will continue to monitor patients condition and treat underlying aggression/psychosis.
[2022-03-02 14:53] VITALS: BMI 27.8
[2022-03-02] MEDS: DIVALPROEX ER 500 MG TAB.ER.24H PO SCH (20:29)
[2022-03-03] MEDS: PALIPERIDONE 3 MG TAB.ER.24 PO SCH (09:03)
[2022-03-03] MEDS: NICOTINE 14MG/24HR PATCH TRANSDERM SCH (09:04)
[2022-03-03] MEDS: DIVALPROEX ER 500 MG TAB.ER.24H PO SCH ×2 (09:04→20:20)
--- NOTE | 2022-03-03 12:57 | P.PN ---
Progress Note - Text Progress Note Date: 03/03/22 Interval History: Patient was seen lying in her bed today and appeared to be brighter in terms of her affect today. She was awake and sitting on her bed. She states that she is doing better today and continues to be fairly concrete and superficial with her insight and judgment. She appears to be quieter in her tone of voice and also less hostile today. She did not curse at sign writer letterer or painter either today. She claims that she is sleeping fairly well at nighttime. Continues to have a fair appetite. She states she is only going to some groups. She continues to have limited insight. Demonstrated mild improvement in her impulsivity. We spoke about discharge planning and she continues to state that she wants to go to "[place]" and believes that she will get a ride from here. She continues to focus on discharge and got upset with sign writer letterer or painter when he explained that patient will need a second dose of Invega Sustenna. She was demanding to have a "right now". And she believes that she is going to be "stuck in the hospital until Thanksgiving". Patient was given Invega Sustenna 234 mg IM on 03/01, next dose of 156 mg IM will be due on 03/07. She is denying any suicidal or homicidal ideations intent or plan. Denying any auditory or visual hallucinations at this time. Patient is taking her medications. she demanded that sign writer letterer or painter leave the room. Mental Status Exam: General Appearance: Patient appears to be stated age, more directable today, dressed in sweats. Improving hygeine and grooming. Behavior: Patient is less impulsive, agitated/aggressive. less hostile today Speech: Patient's speech is more clear today, loud at times, demanding. Mood/Affect: Claims her mood is "ok" and affect is incongruent. Suicidality/Homicidality: Denies Perceptions: Denies Thought process/content: Rambles, less argumentative. Loose associations. less demanding and aggressive. Memory and concentration: Alert and oriented 3, improving concentration. Judgment and insight: chronically limited, improving mildly IMPRESSIONS: Schizoaffective disorder, Bipolar type Nicotine dependence intellectual disability Noncompliance with treatment Plan: -Patient continues to meet criteria for inpatient psychiatric admission for symptom stabilization and safety. Patient has not signed adult voluntary form and medication consent and was placed in patient's chart. -Medications: decrease Invega 6 mg qhs + 3 mg daily for psychosis/mood stabilization, if patient refuses then give prolixin IM as per court order. given Invega Sustenna 234 mg IM on 03/01 to ensure compliance and willbe due for next dose of 156 mg IM on 03/07. depakote 1000 mg qhs + 500 mg daily for aggression/mood stabilization, patient cannot refuse this medication. -When necessary Ativan and Haldol for agitation/aggression. -NRT - nicotine patch - on board for discharge planning. Encouraged the patient to participate in milieu. court ordered on 02/24. will continue to monitor patients condition and treat underlying aggression/psychosis. patient will need her second dose of HOLLOWAY on monday prior to d/c.
[2022-03-03] MEDS ORDERED: MAG HYDROX/AL HYDROX/SIMETH 355 ML BOTTLE PO PRN (14:45)
[2022-03-03] MEDS ORDERED: PALIPERIDONE 6 MG TAB.ER.24 PO SCH (21:00)
[2022-03-04] MEDS: NICOTINE 14MG/24HR PATCH TRANSDERM SCH (08:35)
[2022-03-04] MEDS: PALIPERIDONE 3 MG TAB.ER.24 PO SCH (08:35)
[2022-03-04] MEDS: DIVALPROEX ER 500 MG TAB.ER.24H PO SCH ×2 (08:35→20:45)
[2022-03-04 11:12] VITALS: BP 98/53; PULSE 111
--- NOTE | 2022-03-04 12:03 | P.PN ---
Progress Note - Text Progress Note Date: 03/04/22 Interval History: Patient was seen lying in her bed today and appeared to be brighter in terms of her affect today. She also appeared to be more cooperative during the interview today. She continues to have very limited insight and poor judgment. She continues to state that she wants to go to the hotel "[facility]" upon discharge. She appears to be less focused on this delusion that she owns it. She was requesting to have her second dose of Invega Sustenna today. She claims that she is sleeping fine at nighttime. Continues to be fairly concrete however answers questions more appropriate today. Less labile in terms of her emotions today. Denying any depression or anxiety. States that she is eating well and will maybe shower today. Not going to many groups. Patient was given Invega Sustenna 234 mg IM on 03/01, next dose of 156 mg IM will be due on 03/07. She is denying any suicidal or homicidal ideations intent or plan. Denying any auditory or visual hallucinations at this time. Patient is taking her medications. Mental Status Exam: General Appearance: Patient appears to be stated age, more directable today, dressed in sweats. Improving hygeine and grooming. Behavior: Patient is less impulsive, less aggressive. less hostile today Speech: Patient's speech is more clear, quieter today, concrete. Mood/Affect: Claims her mood is "fine" and affect is incongruent. Suicidality/Homicidality: Denies Perceptions: Denies Thought process/content: less argumentative. Loose associations. less demanding and aggressive. less focused on discharge Memory and concentration: Alert and oriented 3, improving concentration. Judgment and insight: chronically limited, improving mildly IMPRESSIONS: Schizoaffective disorder, Bipolar type Nicotine dependence intellectual disability Noncompliance with treatment Plan: -Patient continues to meet criteria for inpatient psychiatric admission for symptom stabilization and safety. Patient has not signed adult voluntary form and medication consent and was placed in patient's chart. -Medications: decrease Invega 3 mg qhs + 3 mg daily for psychosis/mood stabilization and continue decreasing over the weekend, if patient refuses then give prolixin IM as per court order. given Invega Sustenna 234 mg IM on 03/01 to ensure compliance and willbe due for next dose of 156 mg IM on 03/07. depakote 1000 mg qhs + 500 mg daily for aggression/mood stabilization, patient cannot refuse this medication. -When necessary Ativan and Haldol for agitation/aggression. -NRT - nicotine patch -SW on board for discharge planning. Encouraged the patient to participate in milieu. court ordered on 02/24. will continue to monitor patients condition and treat underlying aggression/psychosis. patient will need her second dose of HOLLOWAY on monday prior to d/c.
[2022-03-04] MEDS ORDERED: PALIPERIDONE 3 MG TAB.ER.24 PO ONE (21:00)
[2022-03-05] MEDS: NICOTINE 14MG/24HR PATCH TRANSDERM SCH (08:42)
[2022-03-05] MEDS: PALIPERIDONE 3 MG TAB.ER.24 PO SCH (08:42)
[2022-03-05] MEDS: DIVALPROEX ER 500 MG TAB.ER.24H PO SCH ×2 (08:42→20:11)
--- NOTE | 2022-03-05 20:24 | P.PN ---
Progress Note - Text Progress Note Date: 03/05/22 Interval History: Patient was seen in interview room. She continues to state that she wants to go to the hotel "[place]" upon discharge. She claims that she is sleeping fine at nighttime. Continues to be fairly concrete however answers questions more appropriate today. Denying any depression or anxiety. States that she is eating well and will maybe shower today. Patient was given Invega Sustenna 234 mg IM on 03/01, next dose of 156 mg IM will be due on 03/07. She is agreeable with this plan. She is denying any suicidal or homicidal ideations intent or plan. Denying any auditory or visual hallucinations at this time. Patient is taking her medications and denies side effects. Mental Status Exam: General Appearance: Patient appears to be stated age, more directable today, dressed in sweats. Improving hygeine and grooming. Behavior: Patient is less impulsive, less aggressive. less hostile today Speech: Patient's speech is more clear, quieter today, concrete. Mood/Affect: Claims her mood is "fine" and affect is congruent. Suicidality/Homicidality: Denies Perceptions: Denies Thought process/content: less argumentative. Loose associations. less demanding and aggressive. less focused on discharge Memory and concentration: Alert and oriented 3, improving concentration. Judgment and insight: chronically limited, improving mildly IMPRESSIONS: Schizoaffective disorder, Bipolar type Nicotine dependence intellectual disability Noncompliance with treatment Plan: -Patient continues to meet criteria for inpatient psychiatric admission for symptom stabilization and safety. Patient has not signed adult voluntary form and medication consent and was placed in patient's chart. -Medications: discontinue PO Invega tomorrow, if patient refuses then give prolixin IM as per court order. given Invega Sustenna 234 mg IM on 03/01 to ensure compliance and will be due for next dose of 156 mg IM on 03/07. depakote 1000 mg qhs + 500 mg daily for aggression/mood stabilization, patient cannot refuse this medication. -When necessary Ativan and Haldol for agitation/aggression. -NRT - nicotine patch -SW on board for discharge planning. Encouraged the patient to participate in milieu. court ordered on 02/24. will continue to monitor patients condition and treat underlying aggression/psychosis. patient will need her second dose of HOLLOWAY on monday prior to d/c.
[2022-03-05] MEDS ORDERED: PALIPERIDONE 3 MG TAB.ER.24 PO ONE (21:00)
[2022-03-06] MEDS: DIVALPROEX ER 500 MG TAB.ER.24H PO SCH ×2 (08:40→21:04)
--- NOTE | 2022-03-06 14:08 | P.PN ---
Progress Note - Text Progress Note Date: 03/06/22 Interval History: Patient was seen beside. She continues to state that she wants to go to the [facility]" upon discharge. She states that she has been doing "well" overall. She claims that she is sleeping fine at nighttime. Continues to be fairly concrete however answers questions more appropriate today. Denying any depression or anxiety. States that she is eating well and is hopeful to see her children soon. Patient was given Invega Sustenna 234 mg IM on 03/01, next dose of 156 mg IM will be due on 03/07. She is agreeable with this plan. She is denying any suicidal or homicidal ideations intent or plan. Denying any auditory or visual hallucinations at this time. Patient is taking her medications and denies side effects. She denied any other concerns. Mental Status Exam: General Appearance: Patient appears to be stated age,directable , dressed in sweats. Improving hygeine and grooming. Behavior: Patient is less impulsive, less aggressive. less hostile today Speech: Patient's speech is more clear, quieter today, concrete. Mood/Affect: Claims her mood is "good" and affect is congruent. Suicidality/Homicidality: Denies Perceptions: Denies Thought process/content: less argumentative. Loose associations. less demanding and aggressive. less focused on discharge Memory and concentration: Alert and oriented 3, improving concentration. Judgment and insight: chronically limited, improving mildly IMPRESSIONS: Schizoaffective disorder, Bipolar type Nicotine dependence Intellectual disability Noncompliance with treatment Plan: -Patient continues to meet criteria for inpatient psychiatric admission for symptom stabilization and safety. Patient has not signed adult voluntary form and medication consent and was placed in patient's chart. -Medications: discontinue PO Invega. Given Invega Sustenna 234 mg IM on 03/01 to ensure compliance and will be due for next dose of 156 mg IM on 03/07. Depakote 1000 mg qhs + 500 mg daily for aggression/mood stabilization, patient cannot refuse this medication. -When necessary Ativan and Haldol for agitation/aggression. -NRT - nicotine patch -SW on board for discharge planning. Encouraged the patient to participate in milieu. court ordered on 02/24. will continue to monitor patients condition and treat underlying aggression/psychosis. patient will need her second dose of HOLLOWAY on monday prior to d/c.
[2022-03-06] MEDS ORDERED: PALIPERIDONE 3 MG TAB.ER.24 PO ONE (21:00)
[2022-03-07] MEDS ORDERED: PALIPERIDONE IM 234 MG/1.5 ML SYG IM ONE (08:00)
[2022-03-07] MEDS: DIVALPROEX ER 500 MG TAB.ER.24H PO SCH (08:45)
[2022-03-07] MEDS ORDERED: PALIPERIDONE IM 156 MG/ML SYG IM ONE (09:15)
--- NOTE | 2022-03-07 11:24 | P.DS ---
Providers Date of admission: 02/18/22 12:24 Expected date of discharge: 03/07/22 Attending physician: Dylan Maguire MD Consults: 02/18/22 06:21 Consult Physician Routine Consulting Provider: Andrew Campos Consult Reason/Comments: For H & P for Medical Follow Up Do you want consulting provider notified?: Yes, Notify in am Primary care physician: Stated None - Discharge Diagnosis(es) (1) Schizoaffective disorder, bipolar type Current Visit: Yes Status: Acute Priority: High (2) Nicotine dependence Current Visit: Yes Status: Acute Priority: Low (3) Intellectual disability Current Visit: Yes Status: Acute Priority: High (4) Non compliance w medication regimen Current Visit: Yes Status: Acute Priority: High Hospital Course: Admission HPI: Admission note was completed by Dr Callahan "Patient is a 41 year old single female with history of schizophrenia who was admitted to the hospital due to psychosis and erratic behaviors. 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 She is claiming she owns the [employer] and was trying to evict people out of there. Patient is delusional and showing erratic behavior. Patient denies having a mental health history. Police state that she was trying to evict people from the [employer]." Clinical Certificate: "Schizophrenia with acute psychosis. Patient with grandiose delusions." Per [facility], pt is not taking any meds, denies suicidal and homicidal thoughts, states she works for the [employer], is a poor historian, not able to appropriately answer questions and treated for scabies while in [facility] ED." She was given Haldol 5 mg IM x 1 and Ativan 2 mg IM x 1 for agitation prior to transfer to the unit. Per nursing notes, since arrival to the unit, patient has been mostly uncooperative with treatment, has been hostile towards nursing staff, called the nurse a "dumbass" numerous times. She is disheveled, easily frustrated, has not attended most groups. She was recently hospitalized on our mental health unit from 11/13/21 to 11/18/21 on involuntary basis for psychosis and agitation, and was discharged on Seroquel 250 mg QHS for mood stabilization/psychosis. Patient deferred mental health court on 11/17/2021. On my assessment today, patient was found isolating to her room looking out the window with the lights off. She is hostile and uncooperative on assessment. She begins to ramble delusional thought content laced with profanity and terminates assessment after 1-2 minutes. 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 She claims she does not have a mental illness and does not need psychotropic medications. She tells this check writer salesperson to get out of her room and she will wait to see the thread reeler. She calls this check writer salesperson a "fuckin' cunt" multiple times. Assessment was terminated to avoid further escalating patient and to maintain safety. Most of history below taken from past records. She has a history of marijuana and tobacco use." Hospital course: Upon admission to the unit patient was admitted involuntarily on a petition and certificate and a second certificate was completed and faxed with the courts. Patient ended up having a court hearing which resulted in a treatment order being issued by the thread reeler. Patient was initially hostile, aggressive and refusing medication however with treatment and being on the court order she eventually got along well with other patients on the unit and followed unit protocol. Patient denied any side effects throughout hospital course. Patient was started on paliperidone by mouth for psychosis/mood stabilization and patient was transitioned onto Invega Sustenna. Patient was given Invega Sustenna 234 mg IM on 03/01 and patient received her second dose of Invega Sustenna 156 mg IM on 03/07 and will be due for her next maintenance dose of 20 and 34 mg IM On 03/28 and every monthly thereafter. Depakote was increased to 1500 mg daily at bedtime for aggression/mood stabilization. Patient spoke of her stressors and engaged in therapy both group and individual. Patient was also seen by medical team for history and physical exam. Throughout the course of the hospitalization patient gradually improved with regards to mood, anxiety, psychosis/aggression, agitation, sleep and returned back to their baseline level of functioning. On the day of discharge patient denied any suicidal or homicidal ideations intent or plan denied any auditory or visual hallucinations. Patient endorsed wanting to live for her health and her future. The patient denied any access to guns or weapons. Patient continues to be determined to go back to [facility] even on discharge. Patient does not have a significant history of substance abuse and was counseled on abstaining from all substances including alcohol and marijuana. Patient was also counseled on the medications and need for regular compliance and was encouraged to follow-up with their outpatient appointment for mental health and also for primary care. Patient will be following up with [facility] and [facility] and also with the [facility] team. Mental status exam: General Appearance: Patient appears to be stated age is alert, directable, and cooperative. Patient is in no acute distress and has improved hygiene and grooming Behavior: Patient is calmly seated without any agitated behavior. Speech: Patient's speech is fluent and nonpressured. Mood/Affect: Patient reports their mood is "fine", affect is congruent. Suicidality/Homicidality: Patient denies having any suicidal or homicidal ideation intent or plan. Perceptions: Patient denies any auditory or visual hallucinations. Though content/process: There is no evidence of any delusional thought content and thought process is linear and goal-directed. concrete Memory and concentration: AOX3, grossly intact for the purposes of this session. Can spell "WORLD" backwards correctly. Judgment and insight: [chronically poor/limited however improved with guarded prognosis Impression: Schizoaffective disorder, bipolar type Intellectual disability Noncompliance with treatment regimen Nicotine dependence Plan: -Continue with discharge today as patient has improved and stabilized psychiatrically and is not currently an imminent threat to herself and/or others. Patient will remain at chronically elevated risk for harm to self and/or others due to her impulsivity and chronically limited insight and judgment -Continue medications: Patient was given Invega Sustenna 234 mg IM on 03/01 and patient received her second dose of Invega Sustenna 156 mg IM on 03/07 and will be due for her next maintenance dose of 20 and 34 mg IM On 03/28 and every monthly thereafter. Depakote 1500 mg daily at bedtime for mood stabilization/aggression. -Patient was counseled on the need for medication compliance and appropriate follow-up at mental health and also primary care for medical issues. Patient verbalized understanding and agreed. -Social work to help arrange for pts discharge today and will be f/u with [facility] and [facility]. Social work also to arrange for patients follow up appointments with [facility] for psychiatric care along with follow up with primary care provider. -Patient counseled on abstaining from recreational drugs and marijuana and alcohol. Was informed/educated on the adverse effects on their physical and mental health. Patient verbally agreed and understood. -Patient was instructed to return to the hospital or seek immediate medical care if their psychiatric or medical symptoms do worsen or reoccur. Allergies Allergy/AdvReac Type Severity Reaction Status Date / Time No Known Allergies Allergy Verified 02/18/22 06:33 Vital Signs Temp 97.8 F 03/04/22 11:11 Pulse 111 H 03/04/22 11:11 Resp 18 03/04/22 11:11 BP 98/53 03/04/22 11:11 Pulse Ox 99 02/27/22 09:30 FiO2 Patient Condition at Discharge: Stable Plan - Discharge Summary New Discharge Prescriptions: New Paliperidone IM [Invega Sustenna] 234 mg IM QMONTHLY #1 each Divalproex ER [Depakote ER] 1,500 mg PO HS 30 Days tab Continue Nicotine 14Mg/24Hr Patch [Habitrol] 1 patch TRANSDERM DAILY 14 Days patch Discontinued QUEtiapine [SEROquel] 50 mg PO HS 30 Days tab QUEtiapine [SEROquel] 200 mg PO HS 30 Days tab Discharge Medication List Divalproex ER [Depakote ER] 1,500 mg PO HS 30 Days tab 03/07/22 [Rx] Nicotine 14Mg/24Hr Patch [Habitrol] 1 patch TRANSDERM DAILY 14 Days patch 03/07/22 [Rx] Paliperidone IM [Invega Sustenna] 234 mg IM QMONTHLY #1 each 03/07/22 [Rx] Patient Instructions/Handouts: How to Stop Smoking (DC), Schizophrenia (DC) Activity/Diet/Wound Care/Special Instructions: Avoid the use of street drugs and alcohol. Take all prescriptions as prescribed. When you are in need of refills on your medications, please contact your medical provider and/or outpatient psychiatrist to have this done. Please go to scheduled outpatient appointment for aftercare treatment. If symptoms return or become worse, call the crisis line at and/or go to the nearest emergency room for evaluation. Discharge Disposition: OTHER INSTITUTION NOT DEFINED
== END 2022-03-07 13:58 | disposition home or self-care (01) | DRG 885 ==
LOC: 3MHU 12:24
PROVIDERS: ADMIT Psychiatry & Neurology Psychiatry; ATTEND Psychiatry & Neurology Psychiatry
DX: F25.0 Schizoaffective disorder, bipolar type (principal); F17.200 Nicotine dependence, unspecified, uncomplicated; F41.9 Anxiety disorder, unspecified; F79 Unspecified intellectual disabilities; Z79.899 Other long term (current) drug therapy; Z91.14 Patient's other noncompliance with medication regimen; Z91.199 Patient's noncompliance with other medical treatment and regimen due to unspecified reason